=== PATIENT | female | born 1990 | race Caucasian/White ===

== ENCOUNTER → 2016-04-20 | Outpatient (CLI) | payer BC ==
--- NOTE | 2016-04-20 15:53 | DI ---
History screening of the fetus. Procedure: Mid frequency imaging transabdominally. Prior study: None. Findings: Single living intrauterine in cephalic presentation. No evidence of placenta prev ia. The placenta is attached posteriorly without abruption.. heart rate is 135 beats per minute. The heart is well visualized and there is no evidence of ve ssel transposition or other focal abnormality. The age parameters such as BPD, HC, AC and FL indicate close correlation with an estimated gest ational age of about 20 weeks 4 days, 20 weeks 5 days by dates. No intracranial abnormality seen. Ventricles are normal. neck is normal. Liver kidneys and abdominal wall appear normal. Bladder appears normal. Normal cord insertion. Three-vessel cord identified. Dorsal spine normal Extremities unremarkable to extent depicted. Cervical length 4.6 cm. Impression: age estimated at 20 weeks 4 days by examination. anatomy unremarkable as depi cted. MATY 09/02/16
== END ==
LOC: US 10:53
PROVIDERS: ATTEND Student in an Organized Health Care Education/Training Program
DX: Z36 Encounter for antenatal screening of mother (principal); Z3A.20 20 weeks gestation of pregnancy
CPT/HCPCS: 76805

== ENCOUNTER → 2016-05-18 | Outpatient (CLI) | payer BC | LOC: MOB LAB 14:03 | PROVIDERS: ATTEND Student in an Organized Health Care Education/Training Program | DX: O26.892 Other specified pregnancy related conditions, second trimester (principal); N89.8 Other specified noninflammatory disorders of vagina; R25.2 Cramp and spasm; Z3A.24 24 weeks gestation of pregnancy | CPT/HCPCS: 84112; 87480; 87510; 87660 ==

== ENCOUNTER → 2016-06-15 | Outpatient (CLI) | payer BC ==
[2016-06-15 09:40] LABS: HEMOGLOBIN 12.8 g/dL (12.0-16.0); MEAN CORPUSCULAR HEMOGLOBIN 30.8 PG (27-31); MEAN CORPUSCULAR HGB CONC 33.7 g/dL (33-37); MEAN PLATELET VOLUME 9.5 FL (7.4-12.2); RDW COEFFICIENT OF VARIATION 13.2 % (11.5-14.5); RED BLOOD COUNT 4.16 10^6/uL (4.20-5.40); WHITE BLOOD COUNT 11.13 10^3/uL (4.8-10.8)
== END ==
LOC: LAB 07:21
PROVIDERS: ATTEND Student in an Organized Health Care Education/Training Program
DX: Z34.03 Encounter for supervision of normal first pregnancy, third trimester (principal); Z3A.28 28 weeks gestation of pregnancy
CPT/HCPCS: 82950; 85027

== ENCOUNTER → 2016-08-10 | Outpatient (CLI) | payer BC | LOC: MOB LAB 14:35 | PROVIDERS: ATTEND Student in an Organized Health Care Education/Training Program | DX: Z36 Encounter for antenatal screening of mother (principal); Z3A.36 36 weeks gestation of pregnancy | CPT/HCPCS: 87150 ==

== ENCOUNTER 2016-08-27 17:31 | Outpatient (CLI) | payer BC ==
[2016-08-27 18:12] VITALS: RESP 18; TEMP 98
--- NOTE | 2016-08-28 08:48 | PDOC(PROG) ---
Intake - - Reason for Visit/Chief Complaint: Contractions, NST Admitted From: Home - Estimated Due Date: 09/05/16 Gestational Age in Weeks and Days: 38 Weeks and 6 Days : 1 Para: 0 - Labs Blood Type and Rh: O+ Group B Strep: Negative Hepatitis B Surface Antigen: Absent HIV: Negative Rubella Status: Immune Maternal - Vital Signs Last Taken Vital Signs: Vital Signs - Last Taken Temperature 98.0 F 08/27/16 18:09 Pulse Rate 77 08/27/16 18:09 Respiratory Rate 18 08/27/16 18:09 Blood Pressure 128/81 08/27/16 18:09 Pulse Ox 98 08/27/16 18:09 - Uterine Activity Uterine Contraction Monitor Mode: External Contraction Frequency(minutes): irritability Uterine Contraction Pattern: Irregular Uterine Tone Measurement Phase: soft Uterine Contraction Intensity: Mild - Vaginal Discharge Vaginal Bleeding Amount: None Vaginal Discharge Amount: None Monitoring - Uterine Activity Uterine Contraction Monitor Mode: External Contraction Frequency(minutes): irritability Uterine Contraction Pattern: Irregular Uterine Tone Measurement Phase: soft Uterine Contraction Intensity: Mild Assessment and Plan - Patient Problems (1) Early Labor Status: AcuteSupport Text: 25 yo at 38 5/7 weeks gestation with contractions x1 day, increasing in intensity and frequency. SVE: cl/thick/high, mid position. Reactive NST. Precautions. F/u as previously scheduled or sooner for labor eval
== END 2016-08-27 18:24 | disposition home or self-care (01) ==
LOC: OBOP 17:31
PROVIDERS: ATTEND Student in an Organized Health Care Education/Training Program
DX: O60.03 Preterm labor without delivery, third trimester (principal); Z3A.38 38 weeks gestation of pregnancy
CPT/HCPCS: 59025; 99211

== ENCOUNTER 2016-09-07 16:24 | Outpatient (CLI) | payer BC ==
--- NOTE | 2016-09-07 17:48 | DI ---
HISTORY: Check NGOZI. TECHNIQUE: Sonographic images of the pelvis were obtained and submitted for interpretation. FINDINGS: Sonographic images through the pelvis demonstrate a normal amniotic fluid index (16.7cm). Doppler heart tones are normal measuring 123 beats per minute. IMPRESSION: 1. Live intrauterine with normal amniotic fluid index at 16.7 cm. NOTE: The interpreting Radiologist was not present at the time of ultrasound interrogation.
--- NOTE | 2016-09-09 22:50 | PDOC(PROG) ---
Intake - - Reason for Visit/Chief Complaint: NST Admitted From: Home - Estimated Due Date: 09/05/16 Gestational Age in Weeks and Days: 40 Weeks and 4 Days : 1 Para: 0 - Labs Blood Type and Rh: O+ Group B Strep: Positive Hepatitis B Surface Antigen: Absent HIV: Negative Rubella Status: Immune VDRL/RPR: Absent Maternal - Uterine Activity Uterine Contraction Monitor Mode: External Contraction Frequency(minutes): 3-3 Contraction Duration (seconds): 40-90 Uterine Contraction Pattern: Irregular - Vaginal Discharge Vaginal Bleeding Amount: None Vaginal Discharge Amount: None Monitoring - Uterine Activity Uterine Contraction Monitor Mode: External Contraction Frequency(minutes): 3-3 Contraction Duration (seconds): 40-90 Uterine Contraction Pattern: Irregular Assessment and Plan - Patient Problems (1) Post-dates Status: Acute Qualifiers: Post-term type: 40-42 weeks gestation Qualified Description: Post-term , 40-42 weeks of gestation Qualifier Code(s): (O48.0) Post-term
== END 2016-09-07 17:20 | disposition home or self-care (01) ==
LOC: OBOP 16:24
PROVIDERS: ATTEND Family Medicine
DX: O48.0 Post-term pregnancy (principal); Z3A.40 40 weeks gestation of pregnancy
CPT/HCPCS: 59025; 76815; 99211

== ENCOUNTER 2016-09-12 19:41 | Inpatient (IN) | payer BC ==
[2016-09-12] MEDS ORDERED: ePHEDrine Inj 5 MG in Normal Saline Flush 1 ML IVP PRN (19:49)
[2016-09-12] MEDS ORDERED: METHYLERGONOVINE MALEATE 0.2 MG/1 ML VIAL IM PRN (19:49)
[2016-09-12] MEDS ORDERED: diphenhydrAMINE 50 MG/1 ML VIAL IVP PRN (19:49)
[2016-09-12] MEDS ORDERED: OXYTOCIN 10 UNIT/1 ML IM PRN (19:49)
[2016-09-12] MEDS ORDERED: NORMAL SALINE 10 ML SYRINGE FLUSH IVP PRN (19:49)
[2016-09-12] MEDS ORDERED: CITRIC ACID/SODIUM CITRATE 30 ML CUP PO PRN (19:49)
[2016-09-12] MEDS ORDERED: CefOXitin Inj 2 GM in Sodium Chloride 0.9% 100 ML IV PRN (19:49)
[2016-09-12] MEDS ORDERED: Naloxone Inj 0.01 MG in Normal Saline Flush 1 ML IVP PRN (19:49)
[2016-09-12] MEDS ORDERED: Famotidine Inj 20 MG in Normal Saline Flush 10 ML IVP PRN (19:49)
[2016-09-12] MEDS ORDERED: TERBUTALINE SULFATE 1 MG/1 ML SDV SUBCUT PRN (19:49)
[2016-09-12] MEDS ORDERED: LIDOCAINE W/ SODIUM BICARB 0.5 ML SYR SUBD PRN (19:49)
[2016-09-12] MEDS ORDERED: Phenylephrine Inj 50 MCG in Normal Saline Flush 0.5 ML IVP PRN (19:49)
[2016-09-12] MEDS ORDERED: Carboprost Inj 250 MCG/ML AMP IM PRN (19:49)
[2016-09-12] MEDS ORDERED: BUTORPHANOL TARTRATE 2 MG/1 ML VIAL IVP PRN (19:49)
[2016-09-12] MEDS ORDERED: Nalbuphine Inj 20 MG/ML Ampule IVP PRN (19:49)
[2016-09-12] MEDS ORDERED: NALOXONE 0.4 MG/1 ML VIAL IVP PRN (19:49)
[2016-09-12] MEDS ORDERED: Metoclopramide Inj 10 MG/2 ML VIAL IV PRN (19:49)
[2016-09-12] MEDS ORDERED: CALCIUM CARBONATE 500 MG (TUMS) CHEWABLE TABLET PO PRN (19:49)
[2016-09-12] MEDS ORDERED: Lidocaine 1% 10 MG/ML - 20 ML VIAL SUBCUT PRN (19:49)
[2016-09-12] MEDS ORDERED: MISOPROSTOL 200 MCG TABLET RECTAL PRN (19:49)
[2016-09-12] MEDS ORDERED: ONDANSETRON 4 MG/2 ML VIAL IVP PRN (19:49)
[2016-09-12] MEDS ORDERED: Oxytocin 20 Units + LR 1,000 ML IV SCH (20:00)
[2016-09-12 20:37] LABS: HEMOGLOBIN 12.6 g/dL (12.0-16.0); MEAN CORPUSCULAR HGB CONC 34.1 g/dL (33-37); MEAN CORPUSCULAR VOLUME 88.1 FL (81-99); MEAN PLATELET VOLUME 10.7 FL (7.4-12.2); RED BLOOD COUNT 4.2 10^6/uL (4.20-5.40)
[2016-09-12] MEDS ORDERED: ceFAZolin Inj 2gm (Premix) 2 GM in Dextrose 1 BAG IV ONE (21:00)
[2016-09-12] MEDS ORDERED: Vancomycin Inj 1gm vial ONE (21:52)
[2016-09-12] MEDS ORDERED: Sodium Chloride 0.9% 250 ML IV ONE (21:53)
[2016-09-12] MEDS: Famotidine Inj 20 MG in Normal Saline Flush 10 ML IVP PRN (23:00)
[2016-09-12] MEDS: Misoprostol Tab 100 MCG TAB VAGINAL SCH (23:13)
[2016-09-13] MEDS: Oxytocin 20 Units + LR 1,000 ML IV SCH (04:36)
[2016-09-13] MEDS: Lactated Ringers-OB Dept 1,000 ML PRIMARY IV SCH ×4 (08:55→20:01)
--- NOTE | 2016-09-13 09:21 | OB.PROGRES ---
Date and Time of Service: 09/13/16 @ 0910 Interval History: Pt is a 26 yo G1 at 41 1/7 weeks by early u/s who presented last noc for post dates cervical ripening. She is GBS positive, and is allergic (by skin wheal of cefoxitin) to cephalosporins. We are unsure of her status to penicillin. Clindamycin sensitivity was not done when the pt's GBS culture was complete. She received 1 dose of vancomycin last noc and got symptoms of [place] Syndrome. She received 1 dose of cytotec and then was teja too much to get more doses. Low dose pitocin was started. She has not had any vaginal bleeding and no gushes of fluid. Objective - Cervical Exam Cervical Exam: /-2/soft/midposition per RN [place]: every 2-3 minutes, irregular, palpating moderate Heart Rate: baseline 130-135, moderate variability. Heart Rate Interpretation Category: Category I - Labs CBC and BMP: 09/12/16 20:25 Labs - Last 24 Hours: Laboratory Results 09/12/16 Range/Units 20:25 WBC 12.39 H (4.8-10.8) 10^3/uL RBC 4.20 (4.20-5.40) 10^6/uL Hgb 12.6 (12.0-16.0) g/dL Hct 37.0 (37.0-47.0) % MCV 88.1 (81-99) FL MCH 30.0 (27-31) PG MCHC 34.1 (33-37) g/dL RDW Std Deviation 40.1 (39-50) fL RDW Coeff of Katerina 13.0 (11.5-14.5) % Plt Count 172 (140-350) 10*3/uL MPV 10.7 (7.4-12.2) FL - Vital Signs Last Taken Vital Signs: Vital Signs - Last Taken Temperature 98.0 F 09/13/16 08:30 Pulse Rate 77 09/13/16 07:15 Respiratory Rate 18 09/13/16 08:30 Blood Pressure 123/75 09/13/16 08:30 Pulse Ox 97 09/13/16 06:30 Assessment and Plan - Patient Problems (1) Post-dates Current Visit: No Status: Acute Qualifiers: Post-term type: 40-42 weeks gestation Qualified Description: Post-term , 40-42 weeks of gestation Qualifier Code(s): (O48.0) Post-term - Assessment / Plan Additional Assessment/Plan Details: -GBS positive--will try a PCN wheal this morning, if it is reactive, then we will treat with another dose of vancomycin (but at a much slower rate and will pre-treat with pepcid and benedryl). -continue cervical ripening with low dose pitocin for now for a Wilkinson score of 6. -pt will want an epidural at some point for analgesia. -discussed plan with pt at the bedside this morning: we will continue low dose pitocin for now, defer AROM until she is much more dilated. Encouraged ambulation as much as possible on the portable monitor. -anticipate normal vaginal delivery.
[2016-09-13] MEDS: Misoprostol Tab 100 MCG TAB VAGINAL SCH ×4 (12:08→22:12)
--- NOTE | 2016-09-13 17:47 | OB.PROGRES ---
Date and Time of Service: 09/13/16 @ 1730 Interval History: Pt has been on low-dose pitocin since 0330 this am, with painful contractions every 2-3 minutes. Having a little bit of bloody show, no leakage of fluid. Baby is active. Pt has no complaints, but is anxious about the plan. Rating her painful contractions a 3-4/10 on the pain scale. The pitocin was shut off about an hour ago and the pt spent some time in the whirlpool. She is currently on the birthing ball. Objective - Cervical Exam Cervical Exam: 1-2/50/-1, moderate [place]: every 2-3 minutes, palpating hard. Heart Rate: 135-140, moderate variability, + accels. Heart Rate Interpretation Category: Category I - Labs CBC and BMP: 09/12/16 20:25 Labs - Last 24 Hours: Laboratory Results 09/12/16 Range/Units 20:25 WBC 12.39 H (4.8-10.8) 10^3/uL RBC 4.20 (4.20-5.40) 10^6/uL Hgb 12.6 (12.0-16.0) g/dL Hct 37.0 (37.0-47.0) % MCV 88.1 (81-99) FL MCH 30.0 (27-31) PG MCHC 34.1 (33-37) g/dL RDW Std Deviation 40.1 (39-50) fL RDW Coeff of Katerina 13.0 (11.5-14.5) % Plt Count 172 (140-350) 10*3/uL MPV 10.7 (7.4-12.2) FL - Vital Signs Last Taken Vital Signs: Vital Signs - Last Taken Temperature 98.1 F 09/13/16 15:00 Pulse Rate 75 09/13/16 15:00 Respiratory Rate 18 09/13/16 15:00 Blood Pressure 125/69 09/13/16 15:00 Pulse Ox 97 09/13/16 06:30 Assessment and Plan - Patient Problems (1) Post-dates Current Visit: No Status: Acute Qualifiers: Post-term type: 40-42 weeks gestation Qualified Description: Post-term , 40-42 weeks of gestation Qualifier Code(s): (O48.0) Post-term - Assessment / Plan Additional Assessment/Plan Details: -discussed plan with pt in detail. She has had cervical change from 0 to 1.5 cm over 21 hours. She received 1 dose of cytotec around 2300 last noc and then has been on low-dose pitocin since 0330 this am. She didn't sleep at all last noc. I suggested that we shut the pitocin off late this afternoon so she could take a bath and rest a little bit and then either give her another dose of cytotec or re-start the low dose pitocin at 1-2 mU for the duration of the noc. She is aware that she has ambien for use prn to help with sleep tonight. Her Wilkinson score is currently 6. -For her GBS + status, she did get a wheal of PCN, which was non-reactive. She will continue to get PCN q4h for GBS prophylaxis. -pt is very much wishing for a vaginal delivery, even wanting to go home if she doesn't progress. I told her that it would be unlikely that she would be able to go home due to her gestational age at this time. -continue expectant management.
[2016-09-13] MEDS ORDERED: ACETAMINOPHEN 325 MG TABLET PO ONE ×2 (22:09→22:15)
[2016-09-13] MEDS ORDERED: Zolpidem Tab 5 MG TAB PO PRN (22:24)
[2016-09-14] MEDS: Misoprostol Tab 100 MCG TAB VAGINAL SCH ×4 (02:44→18:07)
[2016-09-14] MEDS: Lactated Ringers-OB Dept 1,000 ML PRIMARY IV SCH ×2 (04:50→18:06)
[2016-09-14] MEDS ORDERED: Oxytocin 20 Units + LR 1,000 ML IV SCH ×2 (07:15→16:13)
[2016-09-14] MEDS: Oxytocin 20 Units + LR 1,000 ML IV SCH (08:30)
--- NOTE | 2016-09-14 09:19 | OB.PROGRES ---
Date and Time of Service: 09/14/16 @ 0910 Interval History: Pt was able to get some rest last noc. Had a little string of blood in the toilet after voiding once. No other bleeding. No gushes of fluid. Baby is active. Pt currently on 5 mU of pitocin. Rating her contractions 10/10. Lots of back pain. Objective - Cervical Exam Cervical Exam: tight 3/90/0/still posterior [place]: every 2-3 minutes. Heart Rate: 135-140, moderate variability Heart Rate Interpretation Category: Category I - Labs CBC and BMP: 09/12/16 20:25 - Vital Signs Last Taken Vital Signs: Vital Signs - Last Taken Temperature 97.4 F 09/14/16 07:30 Pulse Rate 73 09/14/16 07:30 Respiratory Rate 18 09/14/16 07:30 Blood Pressure 124/60 09/14/16 08:30 Pulse Ox 100 09/14/16 07:30 Assessment and Plan - Patient Problems (1) Post-dates Current Visit: No Status: Acute Qualifiers: Post-term type: 40-42 weeks gestation Qualified Description: Post-term , 40-42 weeks of gestation Qualifier Code(s): (O48.0) Post-term - Assessment / Plan Additional Assessment/Plan Details: -continue pitocin augmentation -epidural prn. -continue PCN for GBS prophylaxis. -continue expectant management.
[2016-09-14] MEDS: fentaNYL Inj 100 MCG/2 ML VIAL IV PRN ×4 (10:50→13:31)
[2016-09-14] MEDS: Famotidine Inj 20 MG in Normal Saline Flush 10 ML IVP PRN (11:33)
--- NOTE | 2016-09-14 13:02 | OB.PROGRES ---
Date and Time of Service: 09/14/16 @ 1250 Interval History: Pt is quite uncomfortable with contractions, but wants to just use fentanyl for now. The fentanyl makes her quite nauseated, but she wishes to continue this. She wishes to not have an epidural. Objective - Cervical Exam Cervical Exam: 6-7/100/0 [place]: every q2 minutes, palpating hard. Heart Rate: 135-140, moderate variabiltiy, + accels. Heart Rate Interpretation Category: Category I - Labs CBC and BMP: 09/12/16 20:25 - Vital Signs Last Taken Vital Signs: Vital Signs - Last Taken Temperature 98.0 F 09/14/16 11:15 Pulse Rate 86 09/14/16 12:30 Respiratory Rate 18 09/14/16 11:15 Blood Pressure 120/77 09/14/16 12:15 Pulse Ox 99 09/14/16 11:15 Assessment and Plan - Patient Problems (1) Post-dates Current Visit: No Status: Acute Qualifiers: Post-term type: 40-42 weeks gestation Qualified Description: Post-term , 40-42 weeks of gestation Qualifier Code(s): (O48.0) Post-term - Assessment / Plan Additional Assessment/Plan Details: -GBS+ -- receiving PCN q4h. -AROM completed with return of clear fluid. -pt continues to decline anything more than fentanyl for pain. -continue to follow closely.
[2016-09-14] MEDS ORDERED: LIDOCAINE MPF 2% - 5 ML (20 MG/1 ML) ONE (15:12)
[2016-09-14] MEDS ORDERED: SCOPOLAMINE HYDROBROMIDE 1.5 MG - 1 EACH PATCH TRANSDERM ONE (15:31)
--- NOTE | 2016-09-14 15:46 | OB.DEL.SUM ---
Delivery Note Delivery Summary: Pt is a 26 yo G1 now P1 at 41 1/7 weeks by early u/s who presented on September 12 for cervical ripening for post-dates . She received 1 dose of cytotec and then was changed to low-dose pitocin because she was teja too much for additional cytotec doses. She was on low-dose pitocin for most of September 13 and then this was shut off because her cervix hadn't changed ( still 150/-1). She received 1 more dose of cytotec and finally had cervical change to 390/-1. Her contractions were augmented with pitocin all morning and then she underwent amniotomy at 1245, with return of clear fluid. Her cervix at that time was 6-7/100/0. She quickly progressed through active labor and pushed for 50 minutes, delivering a viable female infant, over an intact perineum at 1422. There was a nuchal cord x 1. The baby's nose and mouth were suctioned with the bulb suction and the cord was doubly clamped after delay of 45-60 seconds. Baby was placed on mom's chest. The placenta delivered spontaneously and intact with a 3 vessel cord a short time later. 20 mU of pitocin were infused IV. The vagina and perineum were examined and a second degree perineal laceration was noted and repaired in the normal fashion with 3-0 vicryl rapide suture. She also had a second degree left vaginal side wall laceration and a first degree right labial laceration that were repaired with the same suture in the same fashion. EBL 400 cc. Apgars were 8 at 1 minute and 10 at 5 minutes. Both mom and baby tolerated delivery well and are in stable condition at the present time. - Patient Problems (1) Post-dates Current Visit: No Status: Acute Qualifiers: Post-term type: 40-42 weeks gestation Qualified Description: Post-term , 40-42 weeks of gestation Qualifier Code(s): (O48.0) Post-term
[2016-09-14] MEDS ORDERED: NORMAL SALINE 10 ML SYRINGE FLUSH IVP PRN (16:13)
[2016-09-14] MEDS ORDERED: ONDANSETRON 4 MG/2 ML VIAL IVP PRN (16:13)
[2016-09-14] MEDS ORDERED: Ondansetron ODT Tab 4 MG TAB PO PRN (16:13)
[2016-09-14] MEDS ORDERED: diphenhydrAMINE 50 MG/1 ML VIAL IVP PRN (16:13)
[2016-09-14] MEDS ORDERED: DIPH,PERTUSS,TET(ADACEL) VAC/PF 0.5 ML (Tdap) IM SCH (16:13)
[2016-09-14] MEDS ORDERED: Nalbuphine Inj 20 MG/ML Ampule IVP PRN (16:13)
[2016-09-14] MEDS ORDERED: diphenhydrAMINE 25 MG CAPSULE PO PRN (16:13)
[2016-09-14] MEDS ORDERED: LANOLIN HPA 40 GM TUBE TOPICAL PRN (16:13)
[2016-09-14] MEDS ORDERED: BENZOCAINE/MENTHOL SPRAY 56 GM BOTTLE TOPICAL PRN (16:13)
[2016-09-14] MEDS ORDERED: HYDROcodone-APAP 5 MG -325 MG TABLET PO PRN (16:13)
[2016-09-14] MEDS ORDERED: MISOPROSTOL 200 MCG TABLET RECTAL ONE (16:13)
[2016-09-14] MEDS ORDERED: CALCIUM CARBONATE 500 MG (TUMS) CHEWABLE TABLET PO PRN (16:13)
[2016-09-14] MEDS ORDERED: ACETAMINOPHEN 325 MG TABLET PO PRN (16:13)
[2016-09-14] MEDS ORDERED: OXYTOCIN 10 UNIT/1 ML IM ONE (16:13)
[2016-09-14] MEDS ORDERED: Carboprost Inj 250 MCG/ML AMP IM PRN (16:13)
[2016-09-14] MEDS ORDERED: METHYLERGONOVINE MALEATE 0.2 MG/1 ML VIAL IM PRN (16:13)
[2016-09-14] MEDS ORDERED: Methylergonovine Tab 0.2 MG TAB PO PRN (16:13)
[2016-09-14] MEDS ORDERED: GLYCERIN/WITCH HAZEL 1 BOX TOPICAL PRN (16:13)
[2016-09-14] MEDS: IBUPROFEN 800 MG TABLET PO PRN (18:05)
[2016-09-14] MEDS: DOCUSATE 100 MG CAPSULE PO SCH (21:04)
[2016-09-15] MEDS: IBUPROFEN 800 MG TABLET PO PRN ×2 (02:38→10:58)
[2016-09-15 06:36] LABS: HEMOGLOBIN 9.2 g/dL (12.0-16.0); MEAN CORPUSCULAR HEMOGLOBIN 29.4 PG (27-31); MEAN CORPUSCULAR HGB CONC 32.9 g/dL (33-37); MEAN CORPUSCULAR VOLUME 89.5 FL (81-99); RED BLOOD COUNT 3.13 10^6/uL (4.20-5.40)
[2016-09-15] MEDS ORDERED: Prenatal Multivitamin Tab 1 TAB TAB PO SCH (09:00)
[2016-09-15] MEDS ORDERED: FERROUS SULFATE 325 MG TABLET PO SCH (09:00)
[2016-09-15 09:28] VITALS: RESP 18; TEMP 97.7
[2016-09-15] MEDS: DOCUSATE 100 MG CAPSULE PO SCH (10:58)
--- NOTE | 2016-09-15 14:13 | OB.PROGRES ---
Subjective Post Day: 1 Pain Management: PO Conteh Catheter: No Flatus: Yes Diet: Regular [place] Feeding Method: Exculsively Ambulating: Yes Concerns / Additional Information: Feeling good today. Breast feeding is coming along. Lochia today is like a normal period. Perineum is sore, but tolerable with motrin. Denies chest pain, shortness of breath or calf pain. Objective - General General Appearance: POSITIVE: No Acute Distress, Cooperative - Cardiovacular Cardiovascular Exam: POSITIVE: RRR, No Murmur Edema: +1 Pedal Edema Extremities: Negative Bertram's - Bilaterally - Respiratory Respiratory Exam: POSITIVE: Clear to Auscultation - Bilaterally, Breathing Non Labored - Abdomen Bowel Sounds: Present Assesstment / Plan (1) Post-dates Current Visit: No Status: Acute Qualifiers: Post-term type: 40-42 weeks gestation Qualified Description: Post-term , 40-42 weeks of gestation Qualifier Code(s): (O48.0) Post-term Assessment / Plan: -routine cares. - consult ordered for breast feeding assistance. -rh positive -rubella immune. -refused Tdap. -d/c home today or tomorrow.
== END 2016-09-15 16:04 | disposition home or self-care (01) | DRG 774 ==
LOC: OBIP 19:41
PROVIDERS: ADMIT Family Medicine; ATTEND Family Medicine
PROC: 0KQM0ZZ Repair Perineum Muscle, Open Approach (ICD-10-PCS; principal; 2016-09-14)
PROC: 10E0XZZ Delivery of Products of Conception, External Approach (ICD-10-PCS; principal; 2016-09-14)
DX: O70.1 Second degree perineal laceration during delivery (principal); O98.813 Other maternal infectious and parasitic diseases complicating pregnancy, third trimester; Z37.0 Single live birth; Z3A.41 41 weeks gestation of pregnancy; B95.1 Streptococcus, group B, as the cause of diseases classified elsewhere
CPT/HCPCS: 36415; 81003; 85027; J1200; J2001; J2210; J2405; J2540; J3010; J3370; J7050; J7120

== ENCOUNTER 2018-02-26 16:58 | Inpatient (IN) ==
[2018-02-26] MEDS ORDERED: OXYTOCIN 10 UNIT/1 ML IM PRN (18:11)
[2018-02-26] MEDS ORDERED: Naloxone Inj 0.01 MG in Sodium Chloride 0.9% vial 1 ML IVP PRN (18:11)
[2018-02-26] MEDS ORDERED: diphenhydrAMINE 50 MG/1 ML VIAL IVP PRN (18:11)
[2018-02-26] MEDS ORDERED: Carboprost Inj 250 MCG/ML AMP IM PRN (18:11)
[2018-02-26] MEDS ORDERED: MISOPROSTOL 200 MCG TABLET RECTAL PRN (18:11)
[2018-02-26] MEDS ORDERED: ONDANSETRON 4 MG/2 ML VIAL IVP PRN (18:11)
[2018-02-26] MEDS ORDERED: METHYLERGONOVINE MALEATE 0.2 MG/1 ML VIAL IM PRN (18:11)
[2018-02-26] MEDS ORDERED: LIDOCAINE HCL 2 % 10 ML JELLY URO-JECT TOPICAL PRN (18:11)
[2018-02-26] MEDS ORDERED: TERBUTALINE SULFATE 1 MG/1 ML SDV SUBCUT PRN (18:11)
[2018-02-26] MEDS ORDERED: Metoclopramide Inj 10 MG/2 ML VIAL IV PRN (18:11)
[2018-02-26] MEDS ORDERED: LIDOCAINE W/ SODIUM BICARB 0.5 ML SYR SUBD PRN (18:11)
[2018-02-26] MEDS ORDERED: BUTORPHANOL TARTRATE 2 MG/1 ML VIAL IVP PRN (18:11)
[2018-02-26] MEDS ORDERED: Phenylephrine Inj 50 MCG in Sodium Chloride 0.9% vial 0.5 ML IVP PRN (18:11)
[2018-02-26] MEDS ORDERED: CITRIC ACID/SODIUM CITRATE 30 ML CUP PO PRN (18:11)
[2018-02-26] MEDS ORDERED: ePHEDrine Inj 50 MG/ML AMP IVP PRN (18:11)
[2018-02-26] MEDS ORDERED: FAMOTIDINE 20 MG/2 ML VIAL IVP PRN ×2 (18:11)
[2018-02-26] MEDS ORDERED: CefOXitin Inj 2 GM in Sodium Chloride 0.9% 100 ML IV PRN (18:11)
[2018-02-26] MEDS ORDERED: Nalbuphine Inj 20 MG/ML Ampule IVP PRN (18:11)
[2018-02-26] MEDS ORDERED: NALOXONE 0.4 MG/1 ML VIAL IVP PRN (18:11)
[2018-02-26] MEDS ORDERED: CALCIUM CARBONATE 500 MG (TUMS) CHEWABLE TABLET PO PRN (18:11)
[2018-02-26] MEDS ORDERED: Oxytocin 20 Units + LR 20 UNIT/1,000 ML BAG IV SCH (18:15)
[2018-02-26 19:38] LABS: Hematocrit [HCT] 36.1 % (37.0-47.0); Hemoglobin [HGB] 11.9 g/dL (12.0-16.0); MEAN CORPUSCULAR HEMOGLOBIN 29.8 PG (27-31); MEAN CORPUSCULAR VOLUME 90.5 FL (81-99); MEAN PLATELET VOLUME 10.5 FL (7.4-12.2); RED BLOOD COUNT 3.99 10^6/uL (4.20-5.40)
[2018-02-27] MEDS: Lactated Ringers-OB Dept 1,000 ML PRIMARY IV SCH ×3 (05:15→16:55)
[2018-02-27] MEDS ORDERED: Oxytocin 20 Units + LR 20 UNIT/1,000 ML BAG IV SCH ×2 (08:45→23:41)
--- NOTE | 2018-02-27 08:47 | OB.PROGRES ---
Date of Service: 02/27/18 Time of Service: 08:30 Interval History: Pt is a 27 yo at 40 2/7 weeks by early u/s who presented to labor and delivery last noc complaining of increasingly strong contractions, mostly felt in her back. Her cervix was slightly changed from her check the day prior when she was on L&D for the same complaint. Her contractions were moderate. NST was reactive at that time. Overnoc, she was able to get some rest. Still having pain in her back, which is not as bad as it was when she came in. Denies vag bleeding, gushes of fluid or other complaints. I did get called by the nurse this morning at 0540 because the pt had several sustained contractions (the longest was 10 minutes long) after she did nipple stimulation with the breast pump. This morning, she is just frustrated that she can't seem to go into labor on her own but is wanting to be augmented with pitocin to get her contractions stronger. Objective - Cervical Exam Cervical Exam: /-2 per RN at 0730 [place]: roughly 3-5 minutes apart, mild. Heart Rate: 130, + accels, moderate variability Heart Rate Interpretation Category: Category I - Labs CBC and BMP: 02/26/18 19:30 - Vital Signs Last Taken Vital Signs: Vital Signs - Last Taken Temperature 98.2 F 02/27/18 06:30 Pulse Rate 78 02/27/18 06:30 Respiratory Rate 18 02/27/18 06:30 Blood Pressure 126/67 02/27/18 06:30 Pulse Ox 98 02/27/18 06:30 Assessment and Plan - Patient Problems (1) Post-dates Current Visit: No Status: Acute Code(s): O48.0 - Post-term Qualifiers: Post-term type: 40-42 weeks gestation Qualified Code(s): O48.0 - Post-term - Assessment / Plan Additional Assessment/Plan Details: -GBS negative. -start pitocin for augmentation of labor. -will AROM and consider IUPC if her progress slows. -anticipate normal vaginal delivery.
[2018-02-27] MEDS ORDERED: ACETAMINOPHEN 325 MG TABLET PO PRN (11:06)
--- NOTE | 2018-02-27 17:28 | OB.PROGRES ---
Date of Service: 02/27/18 Time of Service: 13:20 Interval History: Starting to feel her contractions more, but still relatively comfortable. Nursing states that she is having some increased bloody show. No other complaints except for a TAFOYA, which has resolved with tylenol. Objective - Cervical Exam Cervical Exam: /- [place]: u/c every 3-4 minutes, palpating moderate. Heart Rate: category 1, + accels and moderate variability, no decels. Heart Rate Interpretation Category: Category I - Labs CBC and BMP: 02/26/18 19:30 - Vital Signs Last Taken Vital Signs: Vital Signs - Last Taken Temperature 97.8 F 02/27/18 15:00 Pulse Rate 75 02/27/18 15:30 Respiratory Rate 17 02/27/18 15:00 Blood Pressure 120/62 02/27/18 15:30 Pulse Ox 99 02/27/18 15:30 Assessment and Plan - Patient Problems (1) Post-dates Current Visit: No Status: Acute Code(s): O48.0 - Post-term Qualifiers: Post-term type: 40-42 weeks gestation Qualified Code(s): O48.0 - Post-term - Assessment / Plan Additional Assessment/Plan Details: -amniotomy completed with return of clear fluid. -will defer IUPC at this time to see if she changes her cervix on her own on current pitocin settings. -continue close observation. -anticipate normal vaginal delivery.
[2018-02-27] MEDS: fentaNYL Inj 100 MCG/2 ML VIAL IV PRN ×2 (20:07→21:50)
[2018-02-27] MEDS: Lidocaine 1% 10 MG/ML - 20 ML VIAL SUBCUT PRN ×2 (22:11→22:30)
--- NOTE | 2018-02-27 23:35 | OB.DEL.SUM ---
Delivery Note Delivery Summary: Pt is a 27 yo G2 now P2 at 40 2/7 weeks by early u/s who presented in early labor late yesterday afternoon. She had slight change in her cervix from 3 to 3- 4 cm and had became slightly more effaced. She requested to be admitted rather than go home and wait for the onset of labor. She was monitored overnoc; cervix was still 3-4 this morning/70/-2. The baby's head was ballotable. Pitocin augmentation was started this morning and the pt's cervix was 4/70/-2 at 1330, at which time I performed an amniotomy with return of clear fluid. She progressed very slowly through the afternoon to 5/80/-1 at 1700. An IUPC was placed at that time to more closely document the adequacy of her contractions. She was 8 cm at 2030 and then finally complete at 2206. She pushed over several contractions and delivered a viable male , over an intact perineum, at 2211. The baby's nose and mouth were suctioned with the bulb suction and he was placed on mom's chest. Cord clamping was delayed x 45 seconds. The cord was then doubly clamped by myself and cut by the father of the baby. Cord blood and cord gases were obtained. The placenta delivered spontaneously and intact, with a 3 vessel cord, at 2214. The vagina and perineum were examined and a small first degree left vaginal laceration and a small left vaginal sidewall laceration were noted and repaired in the normal fashion with 3-0 vicryl rapide suture after infiltration of the areas with 1% lidocaine. The pt's labia majora had also pulled apart slightly up near the clitoris and was tacked back together. Baby weighed 7#2.6oz and was 20 inches long. Apgars were 8 at 1 minute and 9 at 5 minutes. EBL 350cc. Both mom and baby tolerated delivery well and are in stable condition at this time. - Patient Problems (1) Post-dates Current Visit: No Status: Acute Code(s): O48.0 - Post-term Qualifiers: Post-term type: 40-42 weeks gestation Qualified Code(s): O48.0 - Post-term
[2018-02-27] MEDS ORDERED: DIPH,PERTUSS,TET(ADACEL) VAC/PF 0.5 ML (Tdap) IM ONE (23:41)
[2018-02-27] MEDS ORDERED: Nalbuphine Inj 20 MG/ML Ampule IVP PRN (23:41)
[2018-02-27] MEDS ORDERED: LANOLIN HPA 40 GM TUBE TOPICAL PRN (23:41)
[2018-02-27] MEDS ORDERED: diphenhydrAMINE 50 MG/1 ML VIAL IVP PRN (23:41)
[2018-02-27] MEDS ORDERED: LIDOCAINE HCL 2 % 10 ML JELLY URO-JECT TOPICAL PRN (23:41)
[2018-02-27] MEDS ORDERED: ONDANSETRON 4 MG/2 ML VIAL IVP PRN (23:41)
[2018-02-27] MEDS ORDERED: diphenhydrAMINE 25 MG CAPSULE PO PRN (23:41)
[2018-02-27] MEDS ORDERED: Ondansetron ODT Tab 4 MG TAB PO PRN (23:41)
[2018-02-27] MEDS ORDERED: CALCIUM CARBONATE 500 MG (TUMS) CHEWABLE TABLET PO PRN (23:41)
[2018-02-27] MEDS ORDERED: HYDROcodone-APAP 5 MG -325 MG TABLET PO PRN (23:41)
[2018-02-28] MEDS: IBUPROFEN 800 MG TABLET PO PRN ×3 (00:21→15:14)
[2018-02-28] MEDS: BENZOCAINE/MENTHOL SPRAY 56 GM BOTTLE TOPICAL PRN (01:30)
[2018-02-28] MEDS: GLYCERIN/WITCH HAZEL 1 BOX TOPICAL PRN ×2 (01:31→19:35)
[2018-02-28] MEDS: ACETAMINOPHEN 325 MG TABLET PO PRN ×4 (03:21→20:39)
[2018-02-28 04:58] LABS: Hematocrit [HCT] 31.1 % (37.0-47.0); Hemoglobin [HGB] 10.2 g/dL (12.0-16.0); MEAN CORPUSCULAR HEMOGLOBIN 30.1 PG (27-31); MEAN CORPUSCULAR HGB CONC 32.8 g/dL (33-37); MEAN CORPUSCULAR VOLUME 91.7 FL (81-99); MEAN PLATELET VOLUME 10.8 FL (7.4-12.2); RED BLOOD COUNT 3.39 10^6/uL (4.20-5.40)
[2018-02-28] MEDS: DOCUSATE 100 MG CAPSULE PO SCH ×2 (09:00→20:39)
[2018-02-28] MEDS: Prenatal Multivitamin Tab 1 TAB TAB PO SCH (09:00)
[2018-02-28] MEDS: IRON 65 MG PO SCH (09:48)
[2018-03-01] MEDS: IBUPROFEN 800 MG TABLET PO PRN (01:29)
[2018-03-01 01:40] VITALS: BP 112/75; RESP 16; TEMP 97.7; O2SAT 100
[2018-03-01] MEDS: ACETAMINOPHEN 325 MG TABLET PO PRN (06:59)
[2018-03-01] MEDS: Prenatal Multivitamin Tab 1 TAB TAB PO SCH (08:49)
[2018-03-01] MEDS: IRON 65 MG PO SCH (08:49)
[2018-03-01] MEDS: DOCUSATE 100 MG CAPSULE PO SCH (08:50)
[2018-03-01] MEDS: BENZOCAINE/MENTHOL SPRAY 56 GM BOTTLE TOPICAL PRN (11:20)
[2018-03-01] MEDS: GLYCERIN/WITCH HAZEL 1 BOX TOPICAL PRN (11:30)
--- NOTE | 2018-03-01 14:13 | OB.PROGRES ---
Subjective Post Day: 1 Pain Management: PO Conteh Catheter: No Flatus: Yes [place] Color: [place]/Red Scant < 10 ml Diet: Regular Feeding Method: Exculsively Ambulating: Yes Objective - General General Appearance: POSITIVE: No Acute Distress, Cooperative - Cardiovacular Cardiovascular Exam: POSITIVE: RRR, No Murmur Edema: +1 Pedal Edema Extremities: Negative Bertram's - Bilaterally - Respiratory Respiratory Exam: POSITIVE: Clear to Auscultation - Bilaterally, Breathing Non Labored - Abdomen Bowel Sounds: Present Assesstment / Plan (1) Post-dates Current Visit: No Status: Acute Qualifiers: Post-term type: 40-42 weeks gestation Qualified Code(s): O48.0 - Post-term Assessment / Plan: -routine cares. -rubella immune. -rh positive. -breast feeding coming along. -probable d/c home tomorrow since she delivered so late last noc and they live 60+ [place] away.
--- NOTE | 2018-03-01 14:16 | DCSUMMARY ---
Hospitalization Summary Admit Date: 02/26/18 Discharge Date: 03/01/18 Primary Diagnosis:: Term IUP Delivery Type: Vaginal Hospital Course: Pt presented in early labor on 02/26. She was augmented with pitocin on 02/27 and went on to deliver a viable male infant on that day. There were no complications during or after her delivery. / Postop Complications: none [place] Complications: None initially; it is noted that the pt will need a f/u renal u/s for congenital bilateral hydronephrosis 2 weeks after and also an echocardiogram for failed CCHD screening. Exam - Vitals Vital Signs: Vital Signs Temperature 97.7 F Temperature Source Oral Pulse Rate [Pulse Oximeter] 67 Pulse Rate 63 Respiratory Rate 16 Blood Pressure [Right Arm] 112/75 Blood Pressure 118/58 Pulse Ox 100 Oxygen Delivery Method Room Air Height 5 ft 9 in Weight 175 lb - General General Appearance: No Acute Distress, Cooperative - Head Head Exam: Normal Inspection, Normocephalic - ENT ENT Exam: POSITIVE: Normal Exam - Neck Neck Exam: Normal Inspection - Respiratory Respiratory Exam: POSITIVE: Clear to Auscultation - Bilaterally, Breathing Non Labored - Cardiovascular Cardiovascular Exam: POSITIVE: RRR, No Murmur - GI/Abdominal GI/Abdominal Exam: POSITIVE: Non Tender, Non Distended, Soft - Extremities Extremities Exam: POSITIVE: Normal Inspection, Full ROM, Normal Capillary Refill - Neurological Neurological Exam: POSITIVE: Alert, Oriented x 3 - Psychiatric Psychiatric Exam: POSITIVE: Normal Affect, Normal Mood - Integumentary Integumentary Exam: POSITIVE: Normal Color, Warm, Dry Patient Problems - Patient Problem List (1) Post-dates Current Visit: No Status: Acute Code(s): O48.0 - Post-term Qualifiers: Post-term type: 40-42 weeks gestation Qualified Code(s): O48.0 - Post-term Category: Medical (2) Status post vaginal delivery Current Visit: No Status: Acute Category: Medical
== END 2018-03-01 16:00 | disposition home or self-care (01) | DRG 807 ==
LOC: OBOP 16:58 → OBIP 17:53
PROVIDERS: ADMIT Family Medicine; ATTEND Family Medicine